=== PATIENT | female | born 1965 | race Caucasian/White ===

== ENCOUNTER 2016-07-12 07:51 | Outpatient (CLI) | payer OTHER ==
--- NOTE | 2016-07-12 10:19 | DIAGNOSTIC IMAGING REPORT ---
PROCEDURE: US ABDOMEN ULTRASOUND-COMPLETE INDICATION: ABD PAIN; PELVIC PAIN TECHNIQUE: Diaz scale and color Doppler sonographic images of the abdomen were obtained. COMPARISON: None. FINDINGS: Cholecystectomy. Normal CBD measures 6 mm. Liver measures 17.7 cm with diffuse increased echogenicity. Spleen and pancreas are unremarkable. Aorta and IVC are patent. Normal hepatopetal flow. Normal kidneys. Right kidney measures 9.8 cm and left kidney 10.6 cm. Ultrasound of the symptomatic left lower quadrant demonstrates no focal abnormalities. IMPRESSION: 1. Cholecystectomy 2. Hepatic steatosis versus intrinsic liver disease
--- NOTE | 2016-07-12 10:21 | DIAGNOSTIC IMAGING REPORT ---
PROCEDURE: US COMPLETE PELVIC W/TRANSVAG INDICATION: ABD PAIN; PELVIC PAIN TECHNIQUE: Transabdominal and endovaginal mars scale and color Doppler sonographic images of the female pelvis were obtained. COMPARISON: None. FINDINGS: TRANSABDOMINAL SCANS: Hysterectomy. No pelvic mass. TRANSVAGINAL SCANS: Normal vaginal cuff. Ovaries not visualized but no evidence of a pelvic mass or free fluid. IMPRESSION: 1. Hysterectomy 2. Nonvisualization of the ovaries but no evidence of a pelvic mass or free fluid.
== END 2016-07-12 23:00 ==
LOC: US SRH 07:51
DX: R10.9 Unspecified abdominal pain (principal); R10.2 Pelvic and perineal pain; R93.5 Abnormal findings on diagnostic imaging of other abdominal regions, including retroperitoneum

== ENCOUNTER 2016-08-12 04:43 | Emergency (ER) | payer OTHER ==
--- NOTE | 2016-08-12 07:18 | DIAGNOSTIC IMAGING REPORT ---
PROCEDURE: XR ABDOMEN 1 VIEW INDICATION: ABDOMINAL PAIN TECHNIQUE: AP supine view. COMPARISON: Acute abdominal series 04/21/2014. FINDINGS: Air-fluid level in the hepatic and splenic flexures with small air-fluid levels centrally. No free air. Right upper and left pelvic surgical clips. No masses or unusual calcifications. Osseous structures are unremarkable. IMPRESSION: 1. Nonspecific air-fluid levels. Consider enterocolitis. 2. Postsurgical changes.
--- NOTE | 2016-08-12 07:24 | ED ORDER SUMMARY ---
..... Patient: ARABELLA BEARD OrderSheet [facility] VisitID: [id number] [address] [place] [address] 51y, F Registration Date/Time: 08/12/2016 ORDER SHEET Weight: 90.7 kg (stated) Allergies: Ipecac, IV Contrast, Statins - cause muscle cramps GENERAL ORDERS: CBC w Diff Urgent (05:08 08/12/2016 José Luis Ibarra) (Ack 5:10 Noraekimana) (5:15 JQuivey R.N.) CMP Urgent (05:08 08/12/2016 José Luis Ibarra) (Ack 5:10 CHategekimana) (5:15 JQuivey R.N.) UA-Culture if indicated Urgent (05:08 08/12/2016 José Luis Ibarra) (Ack 5:10 Noraekimana) (5:15 JQuivey R.N.) Amylase Urgent (05:08 08/12/2016 José Luis Ibarra) (Ack 5:10 Noraekimana) (5:15 JQuivey R.N.) Lipase Urgent (05:08 08/12/2016 José Luis Ibarra) (Ack 5:10 CHategekimana) (5:15 JQuivey R.N.) Abdomen 1V Urgent (05:40 08/12/2016 José Luis Ibarra) (Ack 5:46 CHategekimana) (5:58 Anthony) MEDICATION ORDERS: - (Oxycontin 20 mg PO x 1 now) (04:59 08/12/2016 José Luis Ibarra) (Cancelled: Physician Order4:59 José Luis Ibarra) IV FLUIDS: IV NS : initial bolus none -, then 1000 mL/hr for X1 (NOW) (05:07 08/12/2016 José Luis Ibarra) (5:17 DDavis R.N.) ORDER SHEET NOTES: [Electronically signed by Santos Caceres Dr. (06:59 08/12/2016)] This document has not been locked and should not be saved in the medical record.
--- NOTE | 2016-08-12 07:24 | ED NURSING NOTES ---
Clinical Report - Nurses [facility] [address] [place] [address] 08/12/2016 4:43 Patient: ARABELLA BEARD TRIAGE Triage time 04:51. Acuity: LEVEL 3. Chief Complaint: ABDOMINAL PAIN and (Back pain). 05:00. Alert. SEPSIS SCREEN: Sepsis Screen. Negative (no infection suspected/documented). --05:00 Emmanuel Potter R.N. 04:49 08/12/16. BP: 176/95. HR: 84. RR: 15. O2 saturation: 99%. Temp: 98.7 F. Pain level now: 12/07. --05:00 Emmanuel Potter R.N. Weight: 90.7 kg stated. Height/Length: 66 inches Per Patient. BMI: 32.3. --04:57 Emmanuel Potter R.N. Medications Metoprolol Tartrate Oral 25 mg, 2 x daily. Omeprazole Oral, daily (pt unsure of dose ). --04:55 Emmanuel Potter R.N. Medication/allergy information source: the patient. --05:00 Emmanuel Potter R.N. Allergies Ipecac. IV Contrast. Statins - cause muscle cramps. --04:55 Emmanuel Potter R.N. History Arrived by private vehicle. Historian: patient. Unaccompanied. Primary physician (Harvey). Onset. (2 days ago). ( Patient reports ABD pain for 2 days, yesterday had a small BM, took Mag. Citrate and had no further BM's, back pain started this AM). Treatment MANIFEST CLERK: (Magnesium Citrate, stool softner). PAST MEDICAL HX: Immunizations: up-to-date. The patient has had a hysterectomy. SOCIAL HX: Current every day heavy tobacco smoker- less than 1 pack per day. Occasional alcohol use. No drug use. No recent travel. No infectious disease exposure. ABUSE ASSESSMENT: No report of abuse. FALL RISK ASSESSMENT: Fall risk assessment completed. No fall risk identified. NUTRITIONAL RISK ASSESSMENT: The nutritional risk assessment revealed no deficiencies. FUNCTIONAL ASSESSMENT: Functional assessment: no impairments noted. LEARNING NEEDS ASSESSMENT: The learning needs assessment revealed no barriers. SKIN INTEGRITY ASSESSMENT: Skin integrity risk assessment completed. No skin integrity risk identified. --05:00 Emmanuel Potter R.N. PROBLEMS: Gastroesophageal Reflux Disease. Constipation. Hypertension. --04:56 Emmanuel Potter R.N. ADDITIONAL SURGERIES: Hysterectomy. Neck Surgery. Shoulder Surgery. --04:56 Emmanuel Potter R.N. Knee Surgery. --04:56 Emmanuel oPtter R.N. Cholecystectomy. --04:57 Emmanuel Potter R.N. Interventions ID band on patient. To treatment room. --05:00 Emmanuel Potter R.N. PHYSICAL ASSESSMENT 04:51. Ambulatory to room. Patient gowned. GENERAL / NEURO / PSYCH: Alert. Oriented X 4. HEENT: Mucous membranes are pink. RESPIRATORY: Respirations not labored. SKIN: Skin is warm and dry. --05:01 Emmanuel Potter R.N. NURSING PROGRESS NOTES 04:50 Patient to restroom to collect urine sample. --04:50 Emmanuel Potter R.N. 04:54. Patient ID band checked for patient name and birthdate: patient confirmed. Clean catch urine collected with return of yellow-colored clear urine; sample sent to lab for urinalysis. Specimen labeled in the presence of the patient. --05:00 Emmanuel Potter R.N. 05:12 08/12/2016 Site #1 started via IV in the right antecubital space with an 20g angiocath, with aseptic technique and good blood return; one attempt. Blood drawn: rainbow set. Labeled in the presence of the patient and sent to the lab. Saline lock flushed with 10 mL saline. --05:17 Flynn Rice R.N. 05:17 08/12/2016 Started bag #1 1000 mL IV Fluids IV NS (Saline); at 1000 mL/hr over 1 hour(s) via site #1. Allergies verified and confirmed 5 rights. IV patency established. IV site checked: no pain, redness, or swelling. IV flushed thoroughly pre- and post-medication administration. Completed per protocol. --05:17 Flynn Rice R.N. 06:29 08/12/2016 IV Fluids IV NS Discontinued: bag #1 infused. Total amount infused: 1000 mL. IV patency established. IV site checked: no pain, redness, or swelling. IV flushed thoroughly. --06:48 Emmanuel Potter R.N. 06:50. The patient is calm and resting quietly. SKIN: Skin is warm and dry. Skin color within normal limits. --07:51 Emmanuel Potter R.N. 07:49. Care transferred and report given (Eriberto MERRITTRFlaco). --07:51 Emmanuel Potter R.N. DISPOSITION / DISCHARGE 07:45 08/12/16. BP: 138/78. HR: 77. RR: 16. O2 saturation: 97%. Pain level now: 10/07. --07:46 Emmanuel Potter R.N. 07:57 08/12/2016 Site #1 removed upon discharge. Catheter intact. Pressure dressing applied. --08:12 Eriberto Samano R.N. Departure time: 08:Aug 12 2016. Condition at departure: improved. No learning barriers present. Discharge instructions provided and reviewed with the patient. Reviewed warnings. Reviewed medication(s). Treatments reviewed. Reviewed referrals. Patient verbalized understanding. Written instructions provided in Faroese. The patient was discharged home. She left the Emergency Department ambulatory and via private vehicle. Patient driving. --08:12 Eriberto Samano R.N. Locked/Released at 09/08/2016 22:10 by Emmanuel Potter R.N.
--- NOTE | 2016-08-12 07:24 | ED NURSING NOTES ---
Clinical Report - Nurses [facility] [address] [place] [address] 08/12/2016 4:43 Patient: ARABELLA BEARD TRIAGE Triage time 04:51. Acuity: LEVEL 3. Chief Complaint: ABDOMINAL PAIN and (Back pain). 05:00. Alert. SEPSIS SCREEN: Sepsis Screen. Negative (no infection suspected/documented). --05:00 Emmanuel Potter R.N. 04:49 08/12/16. BP: 176/95. HR: 84. RR: 15. O2 saturation: 99%. Temp: 98.7 F. Pain level now: 12/07. --05:00 Emmanuel Potter R.N. Weight: 90.7 kg stated. Height/Length: 66 inches Per Patient. BMI: 32.3. --04:57 Emmanuel Potter R.N. Medications Metoprolol Tartrate Oral 25 mg, 2 x daily. Omeprazole Oral, daily (pt unsure of dose ). --04:55 Emmanuel Potter R.N. Medication/allergy information source: the patient. --05:00 Emmanuel Potter R.N. Allergies Ipecac. IV Contrast. Statins - cause muscle cramps. --04:55 Emmanuel Potter R.N. History Arrived by private vehicle. Historian: patient. Unaccompanied. Primary physician (Harvey). Onset. (2 days ago). ( Patient reports ABD pain for 2 days, yesterday had a small BM, took Mag. Citrate and had no further BM's, back pain started this AM). Treatment FLAT FOLDER: (Magnesium Citrate, stool softner). PAST MEDICAL HX: Immunizations: up-to-date. The patient has had a hysterectomy. SOCIAL HX: Current every day heavy tobacco smoker- less than 1 pack per day. Occasional alcohol use. No drug use. No recent travel. No infectious disease exposure. ABUSE ASSESSMENT: No report of abuse. FALL RISK ASSESSMENT: Fall risk assessment completed. No fall risk identified. NUTRITIONAL RISK ASSESSMENT: The nutritional risk assessment revealed no deficiencies. FUNCTIONAL ASSESSMENT: Functional assessment: no impairments noted. LEARNING NEEDS ASSESSMENT: The learning needs assessment revealed no barriers. SKIN INTEGRITY ASSESSMENT: Skin integrity risk assessment completed. No skin integrity risk identified. --05:00 Emmanuel Potter R.N. PROBLEMS: Gastroesophageal Reflux Disease. Constipation. Hypertension. --04:56 Emmanuel Potter R.N. ADDITIONAL SURGERIES: Hysterectomy. Neck Surgery. Shoulder Surgery. --04:56 Emmanuel Potter R.N. Knee Surgery. --04:56 Emmanuel Potter R.N. Cholecystectomy. --04:57 Emmanuel Potter R.N. Interventions ID band on patient. To treatment room. --05:00 Emmanuel Potter R.N. PHYSICAL ASSESSMENT 04:51. Ambulatory to room. Patient gowned. GENERAL / NEURO / PSYCH: Alert. Oriented X 4. HEENT: Mucous membranes are pink. RESPIRATORY: Respirations not labored. SKIN: Skin is warm and dry. --05:01 Emmanuel Potter R.N. NURSING PROGRESS NOTES 04:50 Patient to restroom to collect urine sample. --04:50 Emmanuel Potter R.N. 04:54. Patient ID band checked for patient name and birthdate: patient confirmed. Clean catch urine collected with return of yellow-colored clear urine; sample sent to lab for urinalysis. Specimen labeled in the presence of the patient. --05:00 Emmanuel Potter R.N. 05:12 08/12/2016 Site #1 started via IV in the right antecubital space with an 20g angiocath, with aseptic technique and good blood return; one attempt. Blood drawn: rainbow set. Labeled in the presence of the patient and sent to the lab. Saline lock flushed with 10 mL saline. --05:17 Flynn Rice R.N. 05:17 08/12/2016 Started bag #1 1000 mL IV Fluids IV NS (Saline); at 1000 mL/hr over 1 hour(s) via site #1. Allergies verified and confirmed 5 rights. IV patency established. IV site checked: no pain, redness, or swelling. IV flushed thoroughly pre- and post-medication administration. Completed per protocol. --05:17 Flynn Rice R.N. 06:29 08/12/2016 IV Fluids IV NS Discontinued: bag #1 infused. Total amount infused: 1000 mL. IV patency established. IV site checked: no pain, redness, or swelling. IV flushed thoroughly. --06:48 Emmanuel Potter R.N. 06:50. The patient is calm and resting quietly. SKIN: Skin is warm and dry. Skin color within normal limits. --07:51 Emmanuel Potter R.N. 07:49. Care transferred and report given (Eriberto MERRITTRFlaco). --07:51 Emmanuel Potter R.N. DISPOSITION / DISCHARGE 07:45 08/12/16. BP: 138/78. HR: 77. RR: 16. O2 saturation: 97%. Pain level now: 10/07. --07:46 Emmanuel Potter R.N. 07:57 08/12/2016 Site #1 removed upon discharge. Catheter intact. Pressure dressing applied. --08:12 Eriberto Samano R.N. Departure time: 08:Aug 12 2016. Condition at departure: improved. No learning barriers present. Discharge instructions provided and reviewed with the patient. Reviewed warnings. Reviewed medication(s). Treatments reviewed. Reviewed referrals. Patient verbalized understanding. Written instructions provided in Mauritian. The patient was discharged home. She left the Emergency Department ambulatory and via private vehicle. Patient driving. --08:12 Eriberto Samano R.N. Locked/Released at 09/08/2016 22:10 by Emmanuel Potter R.N.
--- NOTE | 2016-08-12 07:24 | ED ORDER SUMMARY ---
..... Patient: ARABELLA BEARD OrderSheet [facility] VisitID: [id number] [address] [place] [address] 51y, F Registration Date/Time: 08/12/2016 ORDER SHEET Weight: 90.7 kg (stated) Allergies: Ipecac, IV Contrast, Statins - cause muscle cramps GENERAL ORDERS: CBC w Diff Urgent (05:08 08/12/2016 José Luis Ibarra) (Ack 5:10 Noraekimana) (5:15 JQuivey R.N.) CMP Urgent (05:08 08/12/2016 José Luis Ibarra) (Ack 5:10 CHategekimana) (5:15 JQuivey R.N.) UA-Culture if indicated Urgent (05:08 08/12/2016 José Luis Ibarra) (Ack 5:10 Noraekimana) (5:15 JQuivey R.N.) Amylase Urgent (05:08 08/12/2016 José Luis Ibarra) (Ack 5:10 Noraekimana) (5:15 JQuivey R.N.) Lipase Urgent (05:08 08/12/2016 José Luis Ibarra) (Ack 5:10 CHategekimana) (5:15 JQuivey R.N.) Abdomen 1V Urgent (05:40 08/12/2016 José Luis Ibarra) (Ack 5:46 CHategekimana) (5:58 Anthony) MEDICATION ORDERS: - (Oxycontin 20 mg PO x 1 now) (04:59 08/12/2016 José Luis Ibarra) (Cancelled: Physician Order4:59 José Luis Ibarra) IV FLUIDS: IV NS : initial bolus none -, then 1000 mL/hr for X1 (NOW) (05:07 08/12/2016 José Luis Ibarra) (5:17 DDavis R.N.) ORDER SHEET NOTES: [Electronically signed by Santos Caceres Dr. (06:59 08/12/2016)] This document has not been locked and should not be saved in the medical record.
--- NOTE | 2016-08-12 07:24 | ED CLINICAL REPORT ---
Clinical Report - Physicians/Mid Levels [facility] [address] [place] [address] 08/12/2016 4:43 Patient: ARABELLA BEARD Time Seen: 04:53; initial patient contact. Arrived- By private vehicle. Historian- patient. HISTORY OF PRESENT ILLNESS Chief Complaint: ABDOMINAL PAIN. At its maximum, severity described as moderate. When seen in the E.D., severity described as moderate. Modifying factors. Not worsened by anything. Not relieved by food. Not relieved by anything. This started yesterday and is still present. It is described as "pain" and cramping and it is described as located in the epigastric area and radiating to the upper back. The patient has had nausea. No loss of appetite, vomiting or diarrhea. Similar symptoms previously: None. Recent medical care: Not recently seen/assessed. REVIEW OF SYSTEMS No constipation, pain with urination, urinary frequency, fever or chest pain. No difficulty breathing or chills. All systems otherwise negative, except as recorded above. PAST HISTORY Gastroesophageal Reflux Disease. Constipation. Hypertension. SURGERIES: Hysterectomy. Neck Surgery. Shoulder Surgery. Knee Surgery. Cholecystectomy. Medications: Metoprolol Tartrate Oral 25 mg, 2 x daily. Omeprazole Oral, daily (pt unsure of dose ). Allergies: Ipecac. IV Contrast. Statins - cause muscle cramps. SOCIAL HISTORY Current every day smoker. Occasional alcohol use. No drug use. ADDITIONAL NOTES The nursing notes have been reviewed. PHYSICAL EXAM Vital Signs: 08/12/2016 04:49 BP: 176/95. HR: 84. RR: 15. O2 saturation: 99%. Temp: 98.7 F. Pain level now: 8/10. Have been reviewed. Hypertensive. Heart rate normal. Respiratory rate normal. Temperature normal. Oxygen saturation normal. Appearance: Alert. Oriented X3. No acute distress. Eyes: Eyes normal inspection. No scleral icterus. ENT: Dry mucous membranes present. CVS: Normal heart rate and rhythm. Heart sounds normal. Respiratory: No respiratory distress. Breath sounds normal. Abdomen: Soft. Moderate tenderness in the epigastric area. No guarding or rebound tenderness. Bowel sounds normal. No organomegaly. No mass. Skin: Skin warm and dry. Normal skin color. No rash. Extremities: No lower extremity edema. Neuro: Oriented X 3. LABS, X-RAYS, AND EKG KUB: Localized abnormal gas pattern in the right abdomen and left abdomen. Findings consistent with an ileus (mild). Increased stool present. Views: erect AP. Technique: good. The X-rays were independently viewed by me and interpreted contemporaneously by me. Prior films were not available for comparison. Interpretation time: 06:19. Laboratory Tests: UA-Culture if indicated: (TIARA: 08/12/2016 04:50) ( MsgRcvd 08/12/2016 05:19) Final results Test Result Flag Units (Reference) URINE COLOR YELLOW URINE APPEARANCE CLEAR URINE GLUCOSE NEGATIVE (NEGATIVE) URINE BILIRUBIN NEGATIVE (NEGATIVE) URINE KETONE NEGATIVE (NEGATIVE) URINE SPECIFIC GRAVITY 1.020 (1.010-1.030) URINE PH 6.5 (5.0-8.0) URINE PROTEIN NEGATIVE (NEGATIVE) URINE UROBILINOGEN 0.2 EU/dL (0.2-1.0) URINE NITRITE NEGATIVE (NEGATIVE) URINE BLOOD TRACE-INTACT (NEGATIVE) URINE LEUK ESTERASE NEGATIVE (NEGATIVE) URINE RBC 0-1 rbc/hpf (0-1) URINE WBC 0-1 wbc/hpf (0-1) URINE EPITHELIAL CELLS 0-1 EPI/hpf (0-5) URINE BACTERIA NONE SEEN (NONE SEEN) URINE COMMENT CULT NOT INDICATED URINE CULTURES ARE SET-UP BASED ON THE FOLLOWING CRITERIA:POSITIVE NITRITEPOSITIVE LEUKOCYTE ESTERASEGREATER THAN 10 WHITE BLOOD CELLSMODERATE (2+) OR GREATER BACTERIA CBC w Diff: (TIARA: 08/12/2016 05:10) ( [facility] 08/12/2016 05:19) Final results Test Result Flag Units (Reference) WHITE BLOOD COUNT 13.5 H K/uL (4.5-11.5) RED BLOOD COUNT 4.51 M/uL (4.00-5.20) HEMOGLOBIN 14.0 gm/dL (12.0-16.0) HEMATOCRIT 42.5 % (36.0-46.0) MEAN CELL VOLUME 94 fL (80-100) MEAN CORPUSCULAR HGB 31 pg (26-34) MEAN CORPUSCULAR HGB CONC 33 g/dL (31-37) RED CELL DISTRIBUTION WIDTH 14.4 % (11.6-14.8) PLATELET COUNT 350 K/uL (150-400) NEUTROPHIL % 71.0 % (50-75) LYMPH % 20.8 L % (25-40) MONO % 7.3 % (3-14) EOSINOPHIL % 0.3 % (0-4) BASOPHIL % 0.6 % (0-2) CMP: (TIARA: 08/12/2016 05:10) ( MsgRcvd 08/12/2016 05:32) Final results Test Result Flag Units (Reference) GLUCOSE 139 H mg/dL (70-110) BUN 13 mg/dL (7-18) CREATININE 0.8 mg/dL (0.6-1.3) Estimated GFR >60 mL/min Estimated GFR- >60 mL/min Note: Persistent reduction over 3 months in eGFR<60 mL/min/1.73 m2 defines CKD. Patients with eGFR values>=60 mL/min/1.73 m2 may also have CKD if evidence ofpersistent proteinuria. Additional information may be foundat www.kidney.org. SODIUM 138 mmol/L (136-145) POTASSIUM 4.0 mmol/L (3.5-5.1) CHLORIDE 101 mmol/L (98-107) CARBON DIOXIDE 24 mmol/L (21-32) CALCIUM 9.1 mg/dL (8.5-10.1) TOTAL PROTEIN 7.7 g/dL (6.4-8.2) ALBUMIN 3.7 g/dL (3.3-5.0) BILIRUBIN, TOTAL 0.4 mg/dL (0.0-1.0) ALKALINE PHOSPHATASE 98 U/L (46-116) AST (SGOT) 14 L U/L (15-37) ALT (SGPT) 32 U/L (12-78) LIPASE 112 U/L (73-393) AMYLASE 23 L U/L (25-115) . CLINICAL IMPRESSION Constipation INSTRUCTIONS Drink plenty of fluids. Your Current Medications: CONTINUE TAKING THE FOLLOWING MEDICATIONS: Metoprolol Tartrate Oral : 25 mg 2 x daily. Omeprazole Oral : daily, pt unsure of dose. Prescription Medications: Miralax: take 1 package mixed in 8 ounces water every day as needed for constipation. Dispense one (1) twelve pack. Substitution is permissible. Follow-up: Blood pressure screening was not performed during this visit because the patient has an active diagnosis of hypertension. (Electronically signed by Santos Caceres Dr. 08/12/2016 6:59)
--- NOTE | 2016-09-08 22:10 | ED MAR SUMMARY ---
..... Medication Administration Record [facility] [address] [place] [address] Patient: ARABELLA BEARD Visit ID: [id number] 51y, F Weight: 90.7 kg Height/Length: 66 in BMI: 32.3 ALLERGIES: Ipecac, IV Contrast, Statins - cause muscle cramps Start 05:17 08/12/2016 Flynn Rice RSiriN., Stop 06:29 08/12/2016 Emmanuel Potter RSiriN. Medication Administered: IV NS (SALINE), Dose: IV Fluids over 1 hour(s), Rate: 1000 mL/hr, Dispensed: 1000 mL bag, Site: #1 right . Medication Ordered: IV NS : initial bolus none -, then 1000 mL/hr for X1 (NOW).
--- NOTE | 2016-09-08 22:10 | ED MED RECONCILIATION SUMMARY ---
Patient: ARABELLA BEARD Medication Reconciliation Report [facility] VisitID: [id number] [address] [place] [address] 51y, F Registration Date/Time: 08/12/2016 Weight: 90.7 kg Height/Length: 66 in. BMI: 32.3 ALLERGIES: Ipecac, IV Contrast, Statins - cause muscle cramps The patient's Home Medications are listed below: CONTINUE TAKING THE FOLLOWING MEDICATIONS: Metoprolol Tartrate Oral 25 mg, 2 x daily Omeprazole Oral, daily, pt unsure of dose The source(s) of the original Home Medication information: patient The following Medications were given to the patient in the Emergency Department: IV NS IV Fluids bolus 0, then 1000 mL/hr, administered: 08/12/2016 5:17:00 AM The following Medications were prescribed to the patient: Miralax: take 1 package mixed in 8 ounces water every day as needed for constipation. Dispense one (1) twelve pack. Substitution is permissible. -- Santos Caceres Dr.
--- NOTE | 2016-09-08 22:10 | ED DISCHARGE INSTRUCTIONS ---
Patient: ARABELLA BEARD General Instructions [facility] VisitID: [id number] [address] [place] [address] 51y, F Registration Date/Time: 08/12/2016 Constipation INSTRUCTIONS Drink plenty of fluids. Your Current Medications: CONTINUE TAKING THE FOLLOWING MEDICATIONS: Metoprolol Tartrate Oral : 25 mg 2 x daily. Omeprazole Oral : daily, pt unsure of dose. Prescription Medications: Miralax: take 1 package mixed in 8 ounces water every day as needed for constipation. Dispense one (1) twelve pack. Substitution is permissible. Follow-up: Blood pressure screening was not performed during this visit because the patient has an active diagnosis of hypertension. ADDITIONAL INFORMATION Constipation (Adult) Constipation is bowel movements that are less frequent than usual. Stools often become very hard and difficult to pass. This may lead to abdominal pain and bloating. It may also cause painful bowel movements. Constipation may be due to a diet thats low in fiber. Some medications, especially pain medications, can also cause it. Constipation may be treated with enemas, suppositories, laxatives or stool softeners. Your doctor will advise you which will work best for you. Follow the advice below to help avoid this problem in the future. Home Care Medication: Take any medicines as directed. Some laxatives are safe only for occasional use. Others can be taken on a regular basis. Talk to your doctor or pharmacist if you have questions. General Care: Prescription pain medications can cause constipation. If you are prescribed pain medications, ask the doctor whether you should also take a stool softener. A diet high in fiber with plenty of fluids helps to maintain regular, soft bowel movements. The following foods are good sources of dietary fiber: Cereals and breads: Whole grain cereal with bran, oatmeal, rolled oats, whole grain breads Fruits: All fruits (fresh and dried), raisins, prunes, apricots, berries, figs Vegetables: Any fresh vegetables, especially peas, broccoli, brussels sprouts, winter squash, green beans, cauliflower, sneed beans, carrots Other: Popcorn, brown rice Drink plenty of water when you increase the amount of fiber you eat. Follow Up with your doctor or return to this facility if symptoms do not improve in the next few days. You may require further tests or a referral to a specialist. Get Prompt Medical Attention if any of the following occur: Fever over 100.4F (38C) Failure to resume normal bowel movements Increasing abdominal or back pain Nausea or vomiting Abdominal swelling Blood in the stool Weakness, dizziness or fainting Unexpected vaginal bleeding High Fiber Diet Fiber is present in all fruits, vegetables, cereals and grains. Fiber passes through the body undigested. A high fiber diet helps food move through the intestinal tract. The added bulk is helpful in preventing constipation. In people with diverticulosis it serves to clean out the pouches along the colon wall while preventing new ones from forming. A high fiber diet also reduces the risk of colon cancer, decreases blood cholesterol and prevents high blood sugar in people with diabetes. The foods listed below are high in fiber and should be included in your diet. If you are not used to high fiber foods, start with 1 or 2 foods from this list. Every 3-4 days add a new one to your diet until you are eating 4 high fiber foods per day. This should give you 20-35 Gm of fiber/day. It is also important to drink a lot of water when you are on this diet (6-8 glasses a day). Water causes the fiber to swell and increases the benefit. Foods High In Dietary Fiber: BREADS: Made with 100% whole wheat flour; alvarez, wheat or rye crackers; tortillas, bran muffins CEREALS: Whole grain cereal with bran (Chex, Raisin Bran, [place] Bran), oatmeal, rolled oats, granola, wheat flakes, brown rice NUTS: Any nuts FRUITS: All fresh fruits along with edible skins, (bananas, citrus fruit, mangoes, pears, prunes, raisins, apples, pineapple, apricot, melon, jams and marmalades), fruit juices (especially prune juice) VEGETABLES: All types, preferably raw or lightly cooked: especially, celery, eggplant, potatoes,spinach, broccoli, brussel sprouts, winter squash, carrots, cauliflower, soybeans, lentils, fresh and dried beans of all kinds OTHER: Popcorn, any spices You have been given the following additional information: Constipation (Adult) Diet, High Fiber (Electronically signed by Santos Caceres Dr. 08/12/2016 6:59)
--- NOTE | 2016-09-08 22:10 | ED MED RECONCILIATION SUMMARY ---
Patient: ARABELLA BEARD Medication Reconciliation Report [facility] VisitID: [id number] [address] [place] [address] 51y, F Registration Date/Time: 08/12/2016 Weight: 90.7 kg Height/Length: 66 in. BMI: 32.3 ALLERGIES: Ipecac, IV Contrast, Statins - cause muscle cramps The patient's Home Medications are listed below: CONTINUE TAKING THE FOLLOWING MEDICATIONS: Metoprolol Tartrate Oral 25 mg, 2 x daily Omeprazole Oral, daily, pt unsure of dose The source(s) of the original Home Medication information: patient The following Medications were given to the patient in the Emergency Department: IV NS IV Fluids bolus 0, then 1000 mL/hr, administered: 08/12/2016 5:17:00 AM The following Medications were prescribed to the patient: Miralax: take 1 package mixed in 8 ounces water every day as needed for constipation. Dispense one (1) twelve pack. Substitution is permissible. -- Santos Caceres Dr.
--- NOTE | 2016-09-08 22:10 | ED MAR SUMMARY ---
..... Medication Administration Record [facility] [address] [place] [address] Patient: ARABELLA BEARD Visit ID: [id number] 51y, F Weight: 90.7 kg Height/Length: 66 in BMI: 32.3 ALLERGIES: Ipecac, IV Contrast, Statins - cause muscle cramps Start 05:17 08/12/2016 Flynn Rice RSiriN., Stop 06:29 08/12/2016 Emmanuel Potter RSiriN. Medication Administered: IV NS (SALINE), Dose: IV Fluids over 1 hour(s), Rate: 1000 mL/hr, Dispensed: 1000 mL bag, Site: #1 right . Medication Ordered: IV NS : initial bolus none -, then 1000 mL/hr for X1 (NOW).
== END 2016-08-12 08:14 | disposition home or self-care (01) ==
LOC: ED SRH 04:43
DX: K59.00 Constipation, unspecified (principal); I10 Essential (primary) hypertension; K21.9 Gastro-esophageal reflux disease without esophagitis; F17.210 Nicotine dependence, cigarettes, uncomplicated; Z79.899 Other long term (current) drug therapy; Z88.8 Allergy status to other drugs, medicaments and biological substances; Z91.041 Radiographic dye allergy status
CPT/HCPCS: 90004; 90100; 92235; 92530; 95059